=== PATIENT | female | born 1955 | race Caucasian/White ===

== ENCOUNTER 2022-03-14 09:27 | Emergency (ER) | payer MEDICARE, OTHER ==
[2022-03-14 10:09] LABS: #Eosinphils 0.3 thou/uL (0.0-0.7); #Lymphocytes 2.5 thou/uL (1.20-3.40); #Monocytes 0.7 thou/uL (0.11-0.59); #Neutrophils 4.5 thou/uL (1.40-6.50); %Basophils 0.4 % (0.0-1.0); %Eosinophils 4.1 % (0.0-10.0); %Lymphocytes 31.2 % (21.0-51.0); %Monocytes 8.1 % (0.0-10.0); %Neutrophils 56.2 % (42.0-75.0); Hemoglobin 14.3 g/dL (12.0-16.0); Mean Corpuscular HGB CONC 33.8 g/dL (32.0-36.0); Mean Corpuscular Hemoglobin 34.3 pg (27.0-31.0); Mean Platelet Volume 7.1 fL (7.4-10.4); Platelet Count 325 thou/uL (130-400); RBC Distribution Width 11.6 % (11.5-14.5); Red Blood Cell (RBC) Count 4.17 mill/uL (4.20-5.40); White Blood Cell (WBC) Count 8.1 thou/uL (4.8-10.8)
[2022-03-14 10:24] LABS: ALT (SGPT) 15 U/L (8-55); AST (SGOT) 21 U/L (5-34); Acetaminophen Less than 10.0 mcg/mL (10.0-30.0); Albumin 4.1 g/dL (3.4-4.8); Alcohol 43 mg/dL (Less than 10); Alkaline Phosphatase 109 U/L (40-110); Anion Gap 14 mmol/L (10-20); BUN (Urea Nitrogen) 11 mg/dL (9.8-20.1); Bilirubin, Total 0.7 mg/dL (0.2-1.2); Calc. Creatinine Clearance 0 mL/min (70-130); Calcium 9.9 mg/dL (7.8-10.44); Carbon Dioxide 26 mmol/L (23-31); Chloride 96 mmol/L (98-107); Estimated GFR 75; Globulin 2.2 g/dL (2.4-3.5); Glucose 115 mg/dL (80-115); Protein, Total 6.3 g/dL (5.8-8.1); Salicylate Less than 8.0 mg/dL (15.0-30.0); Sodium 132 mmol/L (136-145)
[2022-03-14] MEDS ORDERED: Acetaminophen 500 MG TAB ONE (11:39)
[2022-03-14] MEDS ORDERED: Diazepam 5 MG TAB ONE (14:58)
== END 2022-03-14 17:00 ==
LOC: ERS 09:27
DX: F32.9 Major depressive disorder, single episode, unspecified (principal); Z20.822 Contact with and (suspected) exposure to COVID-19
CPT/HCPCS: 80053; 80307; 85025; 99285; U0003; U0005; 36415

== ENCOUNTER 2022-06-01 10:46 | Outpatient (CLI) | payer MEDICARE, OTHER ==
[~2022-06-01 10:46] MED LIST: Magnevist 469MG/ML 20 ML VIAL ONE
== END 2022-06-01 10:47 | disposition home or self-care (01) ==
LOC: BICMRI 10:46
PROVIDERS: ATTEND Psychiatry & Neurology Neurology
DX: R56.9 Unspecified convulsions (principal)
CPT/HCPCS: 70553; 95816; 95957; A9579

== ENCOUNTER 2022-07-28 08:38 | Inpatient (IN) | payer MEDICARE, OTHER ==
[2022-07-28 11:12] LABS: #Eosinphils 0.1 thou/uL (0.0-0.7); #Lymphocytes 1.5 thou/uL (1.20-3.40); #Monocytes 0.6 thou/uL (0.11-0.59); #Neutrophils 6.3 thou/uL (1.40-6.50); %Basophils 0.3 % (0.0-1.0); %Eosinophils 1.3 % (0.0-10.0); %Lymphocytes 17.6 % (21.0-51.0); %Monocytes 7.1 % (0.0-10.0); %Neutrophils 73.7 % (42.0-75.0); Hemoglobin 13.2 g/dL (12.0-16.0); Mean Corpuscular HGB CONC 35.6 g/dL (32.0-36.0); Mean Corpuscular Hemoglobin 34.2 pg (27.0-31.0); Platelet Count 330 10x3/uL (130-400); RBC Distribution Width 11.8 % (11.5-14.5); Red Blood Cell (RBC) Count 3.86 mill/uL (4.20-5.40); White Blood Cell (WBC) Count 8.5 10x3/uL (4.8-10.8)
[2022-07-28 11:14] LABS: ALT (SGPT) 24 U/L (8-55); AST (SGOT) 26 U/L (5-34); Albumin 4.1 g/dL (3.4-4.8); Alkaline Phosphatase 150 U/L (40-110); Anion Gap 15 mmol/L (10-20); BUN (Urea Nitrogen) 12 mg/dL (9.8-20.1); Bilirubin, Total 1.1 mg/dL (0.2-1.2); CK (CPK) 124 U/L (29-168); Calc. Creatinine Clearance 0 mL/min (70-130); Calcium 9.4 mg/dL (7.8-10.44); Carbon Dioxide 24 mmol/L (23-31); Chloride 78 mmol/L (98-107); Estimated GFR 96; Globulin 2.2 g/dL (2.4-3.5); Glucose 112 mg/dL (80-115); Potassium 3.4 mmol/L (3.5-5.1); Protein, Total 6.3 g/dL (5.8-8.1)
[2022-07-28 11:28] LABS: Sodium 115 mmol/L (136-145)
[2022-07-28 11:37] LABS: Bilirubin Negative (Negative); Blood, Urine Negative (Negative); Clarity Turbid (Clear); Glucose, Urine (Dipstick) Normal (Negative); Ketone, Urine Trace mg/dL (Negative); Leukocyte 75 Leu/uL (Negative); Mucous/LPF Rare LPF (<2+); Nitrite Negative (Negative); Protein, Urine (Dipstick) Negative (Neg-Trace); RBC/HPF 0-3 HPF (0-3); Specific Gravity, Urine 1.014 (1.002-1.036)
[2022-07-28 11:50] LABS: Bacteria/HPF 1+ HPF (None Seen)
[2022-07-28] MEDS ORDERED: Potassium Chloride 20 MEQ TAB ONE ×2 (12:43→15:19)
[2022-07-28] MEDS ORDERED: cefTRIAXone\\ROCEPHIN 1 GM in Sodium Chloride 0.9% 100 ML IVPB SCH (13:00)
[2022-07-28 13:06] LABS: Magnesium 1.6 mg/dL (1.6-2.6)
[2022-07-28] MEDS ORDERED: Bisacodyl 5 MG TAB PO PRN (13:08)
[2022-07-28] MEDS ORDERED: Senokot S 8.6-50 MG TAB PO PRN (13:08)
[2022-07-28] MEDS ORDERED: Thiamine 100 MG TAB PO SCH (13:15)
[2022-07-28] MEDS ORDERED: Electrolyte Replacement Protocol 1 EACH FS SCH (13:30)
[2022-07-28] MEDS ORDERED: cefTRIAXone\\ROCEPHIN 1 GM VIAL ONE (13:37)
[2022-07-28] MEDS ORDERED: Thiamine 100 MG TAB ONE (13:37)
[2022-07-28] MEDS ORDERED: Folic Acid 1 MG TAB ONE (13:37)
[2022-07-28] MEDS ORDERED: Multivitamin W/ Minerals 1 TAB PO SCH (14:30)
[2022-07-28] MEDS ORDERED: Electrolyte Replacement Protocol FS PRN (14:30)
[2022-07-28] MEDS ORDERED: Folic Acid 1 MG TAB PO SCH (14:30)
[2022-07-28] MEDS: Thiamine HCl 200 MG/2 ML VIAL SLOW IVP SCH (14:33)
[2022-07-28] MEDS ORDERED: Potassium Chloride 20 MEQ TAB PO SCH (15:00)
[2022-07-28] MEDS ORDERED: Magnesium 2 GM/50 ML(in water) 2 GM in Premix Bag 1 BAG IVPB SCH (15:00)
[2022-07-28 15:15] LABS: Sodium 117 mmol/L (136-145)
[2022-07-28] MEDS ORDERED: Magnesium 2 GM/50 ML BAG (IN WATER) ONE (15:19)
[2022-07-28 18:46] LABS: Albumin 3.6 g/dL (3.4-4.8); Anion Gap 13 mmol/L (10-20); BUN (Urea Nitrogen) 14 mg/dL (9.8-20.1); BUN/Creatinine Ratio 19.18; Calc. Creatinine Clearance 0 mL/min (70-130); Calcium 8.6 mg/dL (7.8-10.44); Carbon Dioxide 23 mmol/L (23-31); Chloride 82 mmol/L (98-107); Estimated GFR 91; Glucose 136 mg/dL (80-115); Phosphorus 2.9 mg/dL (2.3-4.7); Potassium 3.4 mmol/L (3.5-5.1)
[2022-07-28 18:51] LABS: Sodium 115 mmol/L (136-145)
[2022-07-28] MEDS: Potassium Chloride 20 MEQ TAB PO SCH (21:46)
[2022-07-28] MEDS: Famotidine 20 MG TAB PO SCH (21:46)
[2022-07-28] MEDS: OLANZapine 5 MG TAB PO SCH (21:47)
[2022-07-28] MEDS: levETIRAcetam 500 MG TAB PO SCH (21:47)
[2022-07-28] MEDS: carBAMazepine 200 MG TAB PO SCH (21:48)
[2022-07-28] MEDS: traZODone HCl 50 MG TAB PO SCH (21:49)
[2022-07-28 22:41] LABS: Anion Gap 15 mmol/L (10-20); BUN (Urea Nitrogen) 13 mg/dL (9.8-20.1); Calc. Creatinine Clearance 79 mL/min (70-130); Carbon Dioxide 23 mmol/L (23-31); Chloride 84 mmol/L (98-107); Estimated GFR 89; Glucose 107 mg/dL (80-115); Potassium 3.9 mmol/L (3.5-5.1)
[2022-07-28 22:45] LABS: Sodium 118 mmol/L (136-145)
[2022-07-29] MEDS: Potassium Chloride 20 MEQ TAB PO SCH (00:36)
[2022-07-29 05:09] LABS: #Eosinphils 0.3 thou/uL (0.0-0.7); #Lymphocytes 1.5 thou/uL (1.20-3.40); #Monocytes 0.6 thou/uL (0.11-0.59); #Neutrophils 3.8 thou/uL (1.40-6.50); %Basophils 0.6 % (0.0-1.0); %Eosinophils 5.2 % (0.0-10.0); %Neutrophils 60.3 % (42.0-75.0); Hemoglobin 12.3 g/dL (12.0-16.0); Mean Corpuscular HGB CONC 35.1 g/dL (32.0-36.0); Mean Corpuscular Hemoglobin 34.4 pg (27.0-31.0); Mean Corpuscular Volume 97.9 fl (78.0-98.0); Mean Platelet Volume 6.2 fL (7.4-10.4); Platelet Count 289 10x3/uL (130-400); RBC Distribution Width 11.8 % (11.5-14.5); Red Blood Cell (RBC) Count 3.57 mill/uL (4.20-5.40); White Blood Cell (WBC) Count 6.2 10x3/uL (4.8-10.8)
[2022-07-29 05:32] LABS: Phosphorus 3.3 mg/dL (2.3-4.7)
[2022-07-29 05:33] LABS: Anion Gap 14 mmol/L (10-20); BUN (Urea Nitrogen) 12 mg/dL (9.8-20.1); Calc. Creatinine Clearance 83 mL/min (70-130); Calcium 8.7 mg/dL (7.8-10.44); Carbon Dioxide 24 mmol/L (23-31); Chloride 86 mmol/L (98-107); Estimated GFR 94; Glucose 103 mg/dL (80-115); Magnesium 2.1 mg/dL (1.6-2.6); Potassium 4.4 mmol/L (3.5-5.1); Sodium 120 mmol/L (136-145)
[2022-07-29] MEDS: Enoxaparin Sodium 40 MG/0.4 ML SYRINGE SC SCH (08:11)
[2022-07-29] MEDS: levETIRAcetam 500 MG TAB PO SCH ×2 (08:12→21:19)
[2022-07-29] MEDS: Multivitamin W/ Minerals 1 TAB PO SCH (08:12)
[2022-07-29] MEDS: carBAMazepine 200 MG TAB PO SCH ×2 (08:12→21:17)
[2022-07-29] MEDS: Benztropine 1 MG TAB PO SCH (08:13)
[2022-07-29] MEDS: Folic Acid 1 MG TAB PO SCH (08:13)
[2022-07-29] MEDS: Famotidine 20 MG TAB PO SCH ×2 (08:13→21:21)
[2022-07-29] MEDS ORDERED: Lorazepam 1 MG TAB PO PRN (08:25)
[2022-07-29] MEDS ORDERED: Lisinopril 20 MG TAB PO SCH (09:00)
[2022-07-29] MEDS ORDERED: Hydrochlorothiazide 25 MG TAB PO SCH (09:00)
[2022-07-29] MEDS ORDERED: Folic Acid 1 MG TAB PO SCH (09:00)
[2022-07-29] MEDS: Propranolol 40 MG TAB PO SCH (10:05)
[2022-07-29] MEDS: Acetaminophen 325 MG TAB PO PRN (11:38)
[2022-07-29] MEDS ORDERED: cefTRIAXone\\ROCEPHIN 1 GM in Sodium Chloride 0.9% 100 ML IVPB SCH (13:00)
[2022-07-29] MEDS: Thiamine HCl 200 MG/2 ML VIAL SLOW IVP SCH (13:51)
[2022-07-29 14:40] LABS: Anion Gap 16 mmol/L (10-20); BUN (Urea Nitrogen) 12 mg/dL (9.8-20.1); Calc. Creatinine Clearance 63 mL/min (70-130); Calcium 8.6 mg/dL (7.8-10.44); Carbon Dioxide 17 mmol/L (23-31); Chloride 90 mmol/L (98-107); Estimated GFR 68; Glucose 195 mg/dL (80-115); Potassium 4.3 mmol/L (3.5-5.1); Sodium 119 mmol/L (136-145)
[2022-07-29] MEDS ORDERED: Sodium Chloride 1 GM TAB PO SCH (15:45)
[2022-07-29 17:10] LABS: Anion Gap 15 mmol/L (10-20); BUN (Urea Nitrogen) 14 mg/dL (9.8-20.1); Calc. Creatinine Clearance 73 mL/min (70-130); Calcium 8.8 mg/dL (7.8-10.44); Carbon Dioxide 20 mmol/L (23-31); Chloride 91 mmol/L (98-107); Estimated GFR 81; Glucose 99 mg/dL (80-115); Sodium 122 mmol/L (136-145)
[2022-07-29] MEDS: Sodium Chloride 1 GM TAB PO SCH (21:17)
[2022-07-29] MEDS: traZODone HCl 50 MG TAB PO SCH (21:21)
[2022-07-29] MEDS: OLANZapine 5 MG TAB PO SCH (21:21)
[2022-07-29] MEDS: Sodium Bicarbonate Tab 325 MG TAB PO SCH (21:21)
[2022-07-29 21:28] LABS: Anion Gap 11 mmol/L (10-20); BUN (Urea Nitrogen) 13 mg/dL (9.8-20.1); Calc. Creatinine Clearance 76 mL/min (70-130); Calcium 8.8 mg/dL (7.8-10.44); Carbon Dioxide 25 mmol/L (23-31); Chloride 93 mmol/L (98-107); Estimated GFR 85; Glucose 89 mg/dL (80-115); Potassium 3.7 mmol/L (3.5-5.1); Sodium 125 mmol/L (136-145)
[2022-07-30 01:41] LABS: Anion Gap 13 mmol/L (10-20); BUN (Urea Nitrogen) 12 mg/dL (9.8-20.1); Calc. Creatinine Clearance 80 mL/min (70-130); Calcium 8.6 mg/dL (7.8-10.44); Carbon Dioxide 23 mmol/L (23-31); Chloride 91 mmol/L (98-107); Estimated GFR 91; Glucose 111 mg/dL (80-115); Potassium 3.7 mmol/L (3.5-5.1); Sodium 123 mmol/L (136-145)
[2022-07-30 05:24] LABS: Anion Gap 14 mmol/L (10-20); BUN (Urea Nitrogen) 11 mg/dL (9.8-20.1); Calc. Creatinine Clearance 80 mL/min (70-130); Calcium 9.1 mg/dL (7.8-10.44); Carbon Dioxide 25 mmol/L (23-31); Chloride 90 mmol/L (98-107); Estimated GFR 91; Glucose 99 mg/dL (80-115); Potassium 3.8 mmol/L (3.5-5.1); Sodium 125 mmol/L (136-145)
[2022-07-30] MEDS ORDERED: Lorazepam 1 MG TAB PO PRN (08:25)
[2022-07-30] MEDS: Enoxaparin Sodium 40 MG/0.4 ML SYRINGE SC SCH (09:45)
[2022-07-30] MEDS: Sodium Chloride 1 GM TAB PO SCH ×3 (09:45→21:16)
[2022-07-30] MEDS: levETIRAcetam 500 MG TAB PO SCH ×2 (09:46→21:16)
[2022-07-30] MEDS: Nitrofurantoin Monohyd/M-Cryst 100 MG CAP PO SCH ×2 (09:46→21:16)
[2022-07-30] MEDS: Multivitamin W/ Minerals 1 TAB PO SCH (09:46)
[2022-07-30] MEDS: Propranolol 40 MG TAB PO SCH (09:47)
[2022-07-30] MEDS: Folic Acid 1 MG TAB PO SCH (09:47)
[2022-07-30] MEDS: Sodium Bicarbonate Tab 325 MG TAB PO SCH ×3 (09:47→21:18)
[2022-07-30] MEDS: Benztropine 1 MG TAB PO SCH (09:47)
[2022-07-30] MEDS: Famotidine 20 MG TAB PO SCH ×2 (09:47→21:16)
[2022-07-30] MEDS: Acetaminophen 325 MG TAB PO PRN ×3 (09:51→21:19)
[2022-07-30] MEDS: Thiamine HCl 200 MG/2 ML VIAL SLOW IVP SCH (14:16)
[2022-07-30] MEDS: traZODone HCl 50 MG TAB PO SCH (21:17)
[2022-07-30] MEDS: OLANZapine 5 MG TAB PO SCH (21:18)
[2022-07-30] MEDS: hydrOXYzine 25 MG TAB PO PRN (21:24)
[2022-07-31] MEDS: Acetaminophen 325 MG TAB PO PRN ×4 (03:25→17:41)
[2022-07-31 04:52] LABS: Anion Gap 11 mmol/L (10-20); BUN (Urea Nitrogen) 8 mg/dL (9.8-20.1); Calc. Creatinine Clearance 83 mL/min (70-130); Carbon Dioxide 27 mmol/L (23-31); Chloride 93 mmol/L (98-107); Estimated GFR 94; Glucose 108 mg/dL (80-115); Potassium 3.8 mmol/L (3.5-5.1); Sodium 127 mmol/L (136-145)
[2022-07-31] MEDS ORDERED: Lorazepam 1 MG TAB PO PRN (08:25)
[2022-07-31] MEDS: Enoxaparin Sodium 40 MG/0.4 ML SYRINGE SC SCH (08:40)
[2022-07-31] MEDS: Thiamine 100 MG TAB PO SCH (08:40)
[2022-07-31] MEDS: Folic Acid 1 MG TAB PO SCH (08:40)
[2022-07-31] MEDS: Multivitamin W/ Minerals 1 TAB PO SCH (08:40)
[2022-07-31] MEDS: Sodium Bicarbonate Tab 325 MG TAB PO SCH ×3 (08:41→20:46)
[2022-07-31] MEDS: Nitrofurantoin Monohyd/M-Cryst 100 MG CAP PO SCH ×2 (08:41→20:46)
[2022-07-31] MEDS: Propranolol 40 MG TAB PO SCH (08:41)
[2022-07-31] MEDS: Famotidine 20 MG TAB PO SCH ×2 (08:41→20:47)
[2022-07-31] MEDS: Benztropine 1 MG TAB PO SCH (08:41)
[2022-07-31] MEDS: levETIRAcetam 500 MG TAB PO SCH ×2 (08:41→20:45)
[2022-07-31] MEDS: Sodium Chloride 1 GM TAB PO SCH ×3 (10:15→20:48)
[2022-07-31] MEDS: hydrOXYzine 25 MG TAB PO PRN (12:36)
[2022-07-31 12:40] VITALS: BMI 28.2
[2022-07-31] MEDS: OLANZapine 5 MG TAB PO SCH (20:47)
[2022-07-31] MEDS: traZODone HCl 50 MG TAB PO SCH (20:48)
[2022-08-01] MEDS: Acetaminophen 325 MG TAB PO PRN ×3 (03:23→14:07)
[2022-08-01 05:20] LABS: Anion Gap 14 mmol/L (10-20); BUN (Urea Nitrogen) 7 mg/dL (9.8-20.1); Calc. Creatinine Clearance 86 mL/min (70-130); Carbon Dioxide 24 mmol/L (23-31); Chloride 98 mmol/L (98-107); Estimated GFR 86; Glucose 104 mg/dL (80-115); Potassium 3.7 mmol/L (3.5-5.1); Sodium 132 mmol/L (136-145)
[2022-08-01] MEDS ORDERED: Lorazepam 0.5 MG TAB PO PRN (08:25)
[2022-08-01] MEDS: Enoxaparin Sodium 40 MG/0.4 ML SYRINGE SC SCH (08:31)
[2022-08-01] MEDS: Thiamine 100 MG TAB PO SCH (08:31)
[2022-08-01] MEDS: Multivitamin W/ Minerals 1 TAB PO SCH (08:31)
[2022-08-01] MEDS: Famotidine 20 MG TAB PO SCH (08:31)
[2022-08-01] MEDS: Nitrofurantoin Monohyd/M-Cryst 100 MG CAP PO SCH (08:31)
[2022-08-01] MEDS: Propranolol 40 MG TAB PO SCH (08:31)
[2022-08-01] MEDS: levETIRAcetam 500 MG TAB PO SCH (08:31)
[2022-08-01] MEDS: Benztropine 1 MG TAB PO SCH (08:32)
[2022-08-01] MEDS: Sodium Bicarbonate Tab 325 MG TAB PO SCH ×2 (08:32→14:07)
[2022-08-01] MEDS: Sodium Chloride 1 GM TAB PO SCH ×2 (08:32→14:09)
[2022-08-01] MEDS: Folic Acid 1 MG TAB PO SCH (08:32)
[2022-08-01] MEDS: carBAMazepine 200 MG TAB PO SCH (08:35)
[2022-08-01 12:01] VITALS: BP 139/84; TEMP 98
== END 2022-08-01 15:45 | disposition home or self-care (01) | DRG 643 ==
LOC: ERS 08:38 → ERHOLD 12:44 → 2NO 19:01
PROVIDERS: ADMIT Internal Medicine; ATTEND Internal Medicine
DX: E22.2 Syndrome of inappropriate secretion of antidiuretic hormone (principal); G93.41 Metabolic encephalopathy; N39.0 Urinary tract infection, site not specified; Z20.822 Contact with and (suspected) exposure to COVID-19; I10 Essential (primary) hypertension; G40.909 Epilepsy, unspecified, not intractable, without status epilepticus; F31.9 Bipolar disorder, unspecified; G25.0 Essential tremor; G47.00 Insomnia, unspecified; E87.6 Hypokalemia; E05.90 Thyrotoxicosis, unspecified without thyrotoxic crisis or storm; F10.20 Alcohol dependence, uncomplicated; B96.20 Unspecified Escherichia coli [E. coli] as the cause of diseases classified elsewhere; T42.1X5A Adverse effect of iminostilbenes, initial encounter; T43.295A Adverse effect of other antidepressants, initial encounter; T43.215A Adverse effect of selective serotonin and norepinephrine reuptake inhibitors, initial encounter; Z88.1 Allergy status to other antibiotic agents; Z88.8 Allergy status to other drugs, medicaments and biological substances; Z90.710 Acquired absence of both cervix and uterus; Z90.49 Acquired absence of other specified parts of digestive tract; Z79.899 Other long term (current) drug therapy
CPT/HCPCS: 36415; 51701; 70450; 70486; 71045; 72125; 80048; 80053; 80307; 81003; 81015; 82550; 83735; 83930; 83935; 84100; 84300; 84439; 84443; 84484; 84550; 85025; 87077; 87086; 87186; 93005; J0696; J1650; J3411; J3475; J3490; U0003; U0005

== ENCOUNTER 2022-10-05 09:27 | Outpatient (CLI) | payer MEDICARE, OTHER | END 2022-10-05 09:28 | disposition home or self-care (01) | LOC: BICMAMMO 09:27 | PROVIDERS: ATTEND Family Medicine | DX: Z12.31 Encounter for screening mammogram for malignant neoplasm of breast (principal); Z13.820 Encounter for screening for osteoporosis; M81.0 Age-related osteoporosis without current pathological fracture; Z78.0 Asymptomatic menopausal state; Z91.89 Other specified personal risk factors, not elsewhere classified; Z98.890 Other specified postprocedural states | CPT/HCPCS: 77063; 77067; 77080 ==

== ENCOUNTER 2024-03-05 10:26 | Outpatient (CLI) | payer MEDICARE | END 2024-03-05 10:27 | disposition home or self-care (01) | LOC: SCSRAD 10:26 | PROVIDERS: ATTEND Physician Assistant | DX: S29.9XXA Unspecified injury of thorax, initial encounter (principal); S22.31XA Fracture of one rib, right side, initial encounter for closed fracture ==

== ENCOUNTER 2024-03-31 12:55 | Inpatient (IN) | payer MEDICARE, OTHER ==
[2024-03-31 14:07] LABS: #Basophils 0.04 10x3/uL (0.0-0.2); %Basophils 0.5 % (0.0-1.0); %Lymphocytes 17.1 % (21.0-51.0); %Monocytes 8.6 % (0.0-10.0); Hematocrit 41.4 % (36.0-47.0); Hemoglobin 14.7 g/dL (12.0-16.0); Mean Corpuscular HGB CONC 35.5 g/dL (32.0-36.0); Mean Corpuscular Hemoglobin 36.8 pg (27.0-31.0); Mean Corpuscular Volume 103.5 fL (78.0-98.0); Mean Platelet Volume 8.9 fL (7.4-10.4); Platelet Count 542 10x3/uL (130-400); RBC Distribution Width 15.2 % (11.5-14.5)
[2024-03-31] MEDS ORDERED: Ondansetron PF 4 MG/2 ML Vial ONE (14:18)
[2024-03-31 14:24] LABS: ALT (SGPT) 25 U/L (8-55); AST (SGOT) 28 U/L (5-34); Albumin 3.1 g/dL (3.4-4.8); Alkaline Phosphatase 119 U/L (40-110); Anion Gap 19 mmol/L (10-20); BUN (Urea Nitrogen) 10 mg/dL (9.8-20.1); Bilirubin, Total 0.5 mg/dL (0.2-1.2); Calc. Creatinine Clearance 0 mL/min (70-130); Calcium 8.5 mg/dL (7.8-10.44); Carbon Dioxide 20 mmol/L (23-31); Chloride 100 mmol/L (98-107); Estimated GFR 63; Globulin 2.6 g/dL (2.4-3.5); Glucose 88 mg/dL (80-115); Lipase 235 U/L (8-78); Magnesium 1.8 mg/dL (1.6-2.6); Potassium 2.7 mmol/L (3.5-5.1); Protein, Total 5.7 g/dL (5.8-8.1); Sodium 136 mmol/L (136-145)
[2024-03-31 14:50] LABS: Troponin I 0.044 ng/mL (< 0.028)
[2024-03-31] MEDS ORDERED: Iopamidol 370 76% 100 ML VIAL ONE (15:28)
[2024-03-31] MEDS ORDERED: Potassium Chloride 20 MEQ TAB ONE (16:11)
[2024-03-31] MEDS ORDERED: Potassium Chloride 20 MEQ (100 mL) BAG ONE (16:11)
[2024-03-31] MEDS ORDERED: Aspirin Chewable 81 MG TAB ONE (16:11)
[2024-03-31] MEDS ORDERED: Ondansetron PF 4 MG/2 ML Vial IVP PRN (16:51)
[2024-03-31 16:54] LABS: Bacteria/HPF 2+ HPF (None Seen); Bilirubin Negative (Negative); Blood, Urine Negative (Negative); CAUTI Indications for Culture Alt mental st,lethar; Clarity Clear (Clear); Glucose, Urine (Dipstick) Normal (Negative); Ketone, Urine 20 mg/dL (Negative); Leukocyte Negative Leu/uL (Negative); Nitrite Negative (Negative); Protein, Urine (Dipstick) Negative (Neg-Trace); RBC/HPF 0-3 HPF (0-3); Specific Gravity, Urine 1.017 (1.002-1.036); Squamous Epithelial None Seen HPF (0-3); Urobilinogen Normal mg/dL (Less than 2); WBC/HPF 0-3 HPF (0-3); pH, Urine 5.5 (5.0-9.0)
[2024-03-31 16:56] LABS: Urine Culture Reflex No No
[2024-03-31] MEDS ORDERED: Morphine 4 MG/ML VIAL SLOW IVP PRN ×2 (16:56)
[2024-03-31 17:18] LABS: Acetaminophen Less than 10 mcg/mL (10.0-30.0); Alcohol Less than 10.0 mg/dL (Less than 10); Salicylate Less than 8.0 mg/dL (15.0-30.0)
[2024-03-31 18:29] LABS: Troponin I 0.041 ng/mL (< 0.028)
[2024-03-31 19:14] LABS: Alcohol Less than 10.0 mg/dL (Less than 10)
[2024-03-31 19:17] LABS: Cardiac Risk 2.5 (Less than 4.5); Cholesterol 169 mg/dl (< 200 Desired); HDL Cholesterol 67 mg/dL (>60 Neg Risk); LDL Cholesterol, Calculated 79 mg/dL; Triglycerides 115 mg/dL (Less than 150)
[2024-03-31 20:11] LABS: Troponin I 0.047 ng/mL (< 0.028)
[2024-03-31] MEDS: Ibuprofen 200 MG TAB PO SCH (21:55)
[2024-03-31] MEDS: Sodium Chloride 0.9% 1,000 ML IV SCH (21:56)
[2024-03-31] MEDS: Famotidine/PF 20 mg/2ml Vial SLOW IVP SCH (21:56)
[2024-03-31 22:24] VITALS: BMI 25.7
[2024-04-01 04:33] LABS: #Basophils 0.04 10x3/uL (0.0-0.2); %Basophils 0.7 % (0.0-1.0); %Eosinophils 3.5 % (0.0-10.0); %Lymphocytes 31.9 % (21.0-51.0); %Monocytes 10.4 % (0.0-10.0); %Neutrophils 52.2 % (42.0-75.0); Hematocrit 30.9 % (36.0-47.0); Mean Corpuscular HGB CONC 35.6 g/dL (32.0-36.0); Mean Corpuscular Hemoglobin 36.4 pg (27.0-31.0); Mean Corpuscular Volume 102.3 fL (78.0-98.0); Mean Platelet Volume 8.9 fL (7.4-10.4); Platelet Count 458 10x3/uL (130-400); RBC Distribution Width 15.2 % (11.5-14.5); Red Blood Cell (RBC) Count 3.02 mill/uL (4.20-5.40)
[2024-04-01 05:04] LABS: ALT (SGPT) 20 U/L (8-55); AST (SGOT) 27 U/L (5-34); Albumin 2.3 g/dL (3.4-4.8); Alkaline Phosphatase 81 U/L (40-110); Anion Gap 14 mmol/L (10-20); BUN (Urea Nitrogen) 6 mg/dL (9.8-20.1); Bilirubin, Total 0.5 mg/dL (0.2-1.2); Calc. Creatinine Clearance 75 mL/min (70-130); Calcium 7.6 mg/dL (7.8-10.44); Carbon Dioxide 20 mmol/L (23-31); Chloride 109 mmol/L (98-107); Estimated GFR 83; Globulin 1.9 g/dL (2.4-3.5); Glucose 82 mg/dL (80-115); Lipase 116 U/L (8-78); Potassium 2.8 mmol/L (3.5-5.1); Protein, Total 4.2 g/dL (5.8-8.1); Sodium 140 mmol/L (136-145)
[2024-04-01 08:01] LABS: Magnesium 1.8 mg/dL (1.6-2.6)
[2024-04-01] MEDS: Potassium Chloride 10 MEQ in Premix 1 BAG IVPB SCH (08:39)
[2024-04-01] MEDS: Enoxaparin 40 MG (0.4 mL) SYRINGE SC SCH (08:39)
[2024-04-01] MEDS: NS 0.9% w/ 40 MEQ KCL 1,000 ML IV SCH (08:40)
[2024-04-01] MEDS ORDERED: Cholecalciferol 1,000 UNITS (25 MCG) TAB PO SCH (09:23)
[2024-04-01] MEDS ORDERED: Ibuprofen 200 MG TAB PO PRN (09:31)
[2024-04-01] MEDS: Multivit, Therapeutic 1 TAB PO SCH (10:14)
[2024-04-01] MEDS: busPIRone HCl 10 MG TAB PO SCH (10:15)
[2024-04-01] MEDS: Folic Acid 1 MG TAB PO SCH (10:15)
[2024-04-01] MEDS: Cholecalciferol 1,000 UNITS (25 MCG) TAB PO SCH (10:15)
[2024-04-01] MEDS: Cyanocobalamin (Vitamin B-12) 1,000 MCG TAB PO SCH (10:15)
[2024-04-01] MEDS: Thiamine 100 MG TAB PO SCH (10:15)
[2024-04-01 13:15] VITALS: BMI 25.7
[2024-04-01] MEDS: Sodium Bicarbonate Tab 325 MG TAB PO SCH (14:43)
[2024-04-01] MEDS: Potassium Chloride 20 MEQ TAB PO SCH (17:10)
[2024-04-01] MEDS: OLANZapine 5 MG TAB PO SCH (20:24)
[2024-04-01] MEDS: traZODone HCl 50 MG TAB PO SCH (20:24)
[2024-04-02 04:39] LABS: #Basophils Less than 0.03 10x3/uL (0.0-0.2); %Basophils 0.4 % (0.0-1.0); %Eosinophils 5.6 % (0.0-10.0); %Lymphocytes 26.4 % (21.0-51.0); %Monocytes 10.7 % (0.0-10.0); %Neutrophils 55.8 % (42.0-75.0); Hematocrit 30.9 % (36.0-47.0); Hemoglobin 10.7 g/dL (12.0-16.0); Mean Corpuscular HGB CONC 34.6 g/dL (32.0-36.0); Mean Corpuscular Hemoglobin 36.5 pg (27.0-31.0); Mean Corpuscular Volume 105.5 fL (78.0-98.0); Mean Platelet Volume 8.8 fL (7.4-10.4); Platelet Count 427 10x3/uL (130-400); RBC Distribution Width 15.7 % (11.5-14.5); Red Blood Cell (RBC) Count 2.93 mill/uL (4.20-5.40)
[2024-04-02 05:12] LABS: Anion Gap 10 mmol/L (10-20); BUN (Urea Nitrogen) 4 mg/dL (9.8-20.1); Calc. Creatinine Clearance 78 mL/min (70-130); Calcium 8.2 mg/dL (7.8-10.44); Carbon Dioxide 23 mmol/L (23-31); Chloride 113 mmol/L (98-107); Estimated GFR 87; Glucose 85 mg/dL (80-115); Magnesium 1.8 mg/dL (1.6-2.6); Potassium 3.3 mmol/L (3.5-5.1); Sodium 143 mmol/L (136-145)
[2024-04-02 08:54] VITALS: BP 137/90; TEMP 98.1
[2024-04-02] MEDS: Potassium Chloride 20 MEQ TAB PO SCH (08:57)
[2024-04-02] MEDS: Cholecalciferol 1,000 UNITS (25 MCG) TAB PO SCH (08:58)
[2024-04-02] MEDS: busPIRone HCl 10 MG TAB PO SCH (08:58)
[2024-04-02] MEDS: Multivit, Therapeutic 1 TAB PO SCH (08:58)
[2024-04-02] MEDS: Folic Acid 1 MG TAB PO SCH (08:58)
[2024-04-02] MEDS: Cyanocobalamin (Vitamin B-12) 1,000 MCG TAB PO SCH (08:58)
[2024-04-02] MEDS: Thiamine 100 MG TAB PO SCH (08:58)
== END 2024-04-02 11:17 | disposition home or self-care (01) | DRG 439 ==
LOC: ERS 12:55 → ERHOLD 16:33 → 2SW 21:40
PROVIDERS: ADMIT Internal Medicine; ATTEND Internal Medicine
DX: K85.90 Acute pancreatitis without necrosis or infection, unspecified (principal); S22.31XA Fracture of one rib, right side, initial encounter for closed fracture; I10 Essential (primary) hypertension; W18.30XA Fall on same level, unspecified, initial encounter; Z88.8 Allergy status to other drugs, medicaments and biological substances; Z79.899 Other long term (current) drug therapy; Z90.49 Acquired absence of other specified parts of digestive tract; Z90.710 Acquired absence of both cervix and uterus; F41.9 Anxiety disorder, unspecified; E86.1 Hypovolemia; E86.0 Dehydration; D53.9 Nutritional anemia, unspecified; R91.1 Solitary pulmonary nodule
CPT/HCPCS: 36415; 70450; 71260; 74177; 76705; 80048; 80053; 80061; 80307; 81001; 83605; 83690; 83735; 84484; 85025; 93005; 96361; 96365; 96366; 96375; J1650; J2405; J3480; Q9967

== ENCOUNTER 2024-05-28 13:04 | Outpatient (CLI) | payer MEDICARE, OTHER | END 2024-05-28 13:05 | disposition home or self-care (01) | LOC: BICMAMMO 13:04 | PROVIDERS: ATTEND Family Medicine | DX: Z12.31 Encounter for screening mammogram for malignant neoplasm of breast (principal); Z78.0 Asymptomatic menopausal state; M81.0 Age-related osteoporosis without current pathological fracture; Z91.89 Other specified personal risk factors, not elsewhere classified; Z98.890 Other specified postprocedural states | CPT/HCPCS: 77063; 77067; 77080 ==